=== PATIENT | female | born 1955 | race Caucasian/White ===

== ENCOUNTER 2022-02-27 16:37 | Emergency (ER) | payer BC, OTHER ==
--- NOTE | 2022-02-27 18:00 | RAD REPORT ---
EXAM DESCRIPTION: RAD - Foot Right 3 View - 02/27/2022 5:49 pm CLINICAL HISTORY: Right foot pain status post injury FINDINGS: Nondisplaced fracture distal metaphysis fifth proximal phalanx. Additional oblique lucency within proximal diaphysis fifth proximal phalanx likely nondisplaced fract ure No dislocation
--- NOTE | 2022-02-27 19:01 | EDPHYS ---
Physician Documentation [facility] Name: Leonie Villalta Age: 66 yrs Sex: Female : 1955 Arrival Date: 02/27/2022 Time: 16:40 Bed 12 Private MD: ED Physician Fazal Villareal Historical: - Allergies: 02/27 17:06 No Known Allergies; vg1 - Home Meds: 17:06 amlodipine oral [Active]; atorvastatin Oral [Active]; trulicity [Active]; toujeo vg1 [Active]; Jaurdiance [Active]; - PMHx: 17:06 Diabetes - NIDDM; High Cholesterol; IBS; vg1 - PSHx: 17:06 Cholecystectomy; Appendectomy; Bowel Resection; vg1 - Immunization history:: Client reports receiving the 2nd dose of the Covid vaccine. - Social history:: Smoking status: Patient denies any tobacco usage or history of. Vital Signs: 17:04 BP 148 / 79; Pulse 96; Resp 16; Temp 98.0; Pulse Ox 99% on R/A; Weight 70.31 kg; Height vg1 5 ft. 5 in. (165.10 cm); Pain 8/10; 17:04 Body Mass Index 25.79 (70.31 kg, 165.10 cm) vg1 MDM: 17:18 Patient medically screened. [facility] 19:00 Data reviewed: vital signs, nurses notes. Counseling: I had a detailed discussion with [facility] the patient and/or guardian regarding: the historical points, exam findings, and any diagnostic results supporting the discharge/admit diagnosis, radiology results, the need for outpatient follow up, to return to the emergency department if symptoms worsen or persist or if there are any questions or concerns that arise at home. 02/27 17:19 Order name: Foot Right 3 View XRAY; Complete Time: 18:04 [facility] 02/27 18:05 Order name: Ortho shoe; Complete Time: 19:04 [facility] 02/27 18:05 Order name: Misc. Order: néstor tape 4th and 5th toe ; Complete Time: 19:04 [facility] Administered Medications: No medications were administered Disposition: 02/28 07:39 Co-signature as Attending Physician, Fazal Villareal MD I agree with the assessment and kdr plan of care. Disposition Summary: 02/27/22 19:01 Discharge Ordered Location: Home jmm Condition: Stable jmm Diagnosis - Fracture of the Toe, unspecified jmm Followup: jm - With: Edy Brown DPM - When: 2 - 3 days - Reason: Recheck today's complaints, Continuance of care, Re-evaluation by your physician Discharge Instructions: - Discharge Summary Sheet jmm - Toe Fracture jm Forms: - Medication Reconciliation Form jm - Thank You Letter jmm - Antibiotic Education jm - Prescription Opioid Use [facility] Signatures: Dispatcher [employer] EDMS Fazal Villareal MD MD kdr Mickail, Joel, PA PA jmm Garcia, Victoria, RN RN vg1
--- NOTE | 2022-02-27 19:01 | ER ---
Nurse's Notes [facility] Name: Leonie Villalta Age: 66 yrs Sex: Female : 1955 Arrival Date: 02/27/2022 Time: 16:40 Bed 12 Private MD: Diagnosis: Fracture of the Toe, unspecified Presentation: 02/27 17:04 Chief complaint: Patient states: pt was walking and caught fourth and fifth digit of vg1 Right foot on a bench. Coronavirus screen: Vaccine status: Patient reports receiving the 2nd dose of the covid vaccine. Client denies travel out of the [place] in the last 14 days. Ebola Screen: Patient denies exposure to infectious person. Patient denies travel to an Ebola-affected area in the 21 days before illness onset. Initial Sepsis Screen: Does the patient meet any 2 criteria? No. Patient's initial sepsis screen is negative. Does the patient have a suspected source of infection? No. Patient's initial sepsis screen is negative. Risk Assessment: Do you want to hurt yourself or someone else? Patient reports no desire to harm self or others. Onset of symptoms was February 27, 2022. 17:04 Method Of Arrival: Ambulatory vg1 17:04 Acuity: ODALYS 4 vg1 Triage Assessment: 17:06 General: Appears in no apparent distress. uncomfortable, Behavior is calm, cooperative. vg1 Pain:. 17:06 Pain: Complains of pain in right fourth toe, right fifth toe, Right fourth toenail and vg1 Right fifth toenail Pain currently is 2 out of 10 on a pain scale. at worst was 8 out of 10 on a pain scale. Musculoskeletal: Capillary refill < 3 seconds. Historical: - Allergies: 17:06 No Known Allergies; vg1 - Home Meds: 17:06 amlodipine oral [Active]; atorvastatin Oral [Active]; trulicity [Active]; toujeo vg1 [Active]; Jaurdiance [Active]; - PMHx: 17:06 Diabetes - NIDDM; High Cholesterol; IBS; vg1 - PSHx: 17:06 Cholecystectomy; Appendectomy; Bowel Resection; vg1 - Immunization history:: Client reports receiving the 2nd dose of the Covid vaccine. - Social history:: Smoking status: Patient denies any tobacco usage or history of. Screenin:30 Abuse screen: Denies threats or abuse. Denies injuries from another. Nutritional jl7 screening: No deficits noted. Tuberculosis screening: No symptoms or risk factors identified. Fall Risk None identified. Assessment: 17:30 General: Appears in no apparent distress. uncomfortable, Behavior is calm, cooperative, jl7 appropriate for age. Pain: Complains of pain in right foot Pain currently is 8 out of 10 on a pain scale. Neuro: Level of Consciousness is awake, alert, obeys commands, Oriented to person, place, time, situation. Cardiovascular: Patient's skin is warm and dry. Respiratory: Airway is patent Respiratory effort is even, unlabored, Respiratory pattern is regular, symmetrical. Derm: Skin is pink, warm \T\ dry. Vital Signs: 17:04 BP 148 / 79; Pulse 96; Resp 16; Temp 98.0; Pulse Ox 99% on R/A; Weight 70.31 kg; Height vg1 5 ft. 5 in. (165.10 cm); Pain 8/10; 17:04 Body Mass Index 25.79 (70.31 kg, 165.10 cm) vg1 ED Course: 16:40 Patient arrived in ED. rg4 17:06 Triage completed. vg1 17:06 Arm band placed on. vg1 17:07 Phoenix Christy PA is PHCP. jmm 17:08 Fazal Villareal MD is Attending Physician. [facility] 17:30 Patient has correct armband on for positive identification. jl7 17:30 No provider procedures requiring assistance completed. Patient did not have IV access jl7 during this emergency room visit. 17:51 Foot Right 3 View XRAY In Process Unspecified. EDMS 18:06 Sofía Reyes, RN is Primary Nurse. jl7 19:00 Edy Brown DPM is Referral Physician. jmm Administered Medications: No medications were administered Medication: 17:30 VIS not applicable for this client. jl7 Outcome: 19:01 Discharge ordered by . [facility] 19:13 Discharged to home ambulatory. jl7 19:13 Condition: stable 19:13 Discharge instructions given to patient, Instructed on discharge instructions, follow up and referral plans. Demonstrated understanding of instructions, follow-up care. 19:13 Patient left the ED. jl7 Signatures: Dispatcher [employer] EDMS Phoenix Christy PA PA jmm Marco, Margo rg4 Sofía Reyes RN RN jl7 Daily Lara RN RN vg1 Corrections: (The following items were deleted from the chart) 17:07 17:04 Chief complaint: Patient states: pt was walking and caught fourth and fifth digit vg1 of Left foot on a bench. vg1
[2022-02-27 19:32] VITALS: BP 148/79; TEMP 98; O2SAT 99
== END 2022-02-27 19:13 | disposition home or self-care (01) ==
LOC: ER 16:37
DX: S92.424A Nondisplaced fracture of distal phalanx of right great toe, initial encounter for closed fracture (principal)
CPT/HCPCS: 99283

== ENCOUNTER 2022-05-19 11:24 | Observation (INO) | payer OTHER ==
--- OUTSIDE RECORDS SUMMARY | 2022-05-19 11:28 | XMS REPORT | Continuity of Care Document ---
:1955 Author Organization [facility] t Address [address] [place] [address] Care Team Providers Name Role Phone Ladi Roman MD Primary Care Physician [facility] Attending Clinician Unavailable Ladi Roman MD Attending Clinician Karely Moore MD Attending Clinician [phone] Margoth Maya MA Attending Clinician Unavailable LELAND LIU Attending Clinician Unavailable Fior Schwab MA Attending Clinician Unavailable Yann Tenorio MD Attending Clinician Provider Kenia RICARDO Attending Clinician ENRIKE HAMMOND Attending Clinician Unavailable Payers Payer Name Policy Type Policy Number Effective Date Expiration Date S ource Problems Condition Condition Condition Status Onset Resolution Last Treating Co mments Source Name Details Category Date Date Treatment Clinician Date Coronary Coronary Disease Active Overview: [facility] artery artery 3-[address] disease disease 00:00: g of this Hospi ta involving involving 00 note is l [place] different coronary coronary from the artery of artery of original. [place] heart heart Alexa without without -Asymptom angina angina atic : pectoris pectoris originall y referred and evaluated in 11/2019 : ordered test never completed -Dislike ASA : thinks its responsib le for worsening ear ringing-E CHO :-Normal LV mass. LV EF is normal. Overall wall motion is normal. -Diastoli c dysfuncti on Grade I (Mild): Impaired relaxatio n with normal LV filling pressures . -RV size is normal. RV systolic function is normal.-C alcium score was abnormal: IMPRESSIO N: Heavy coronary calcifica tion with a total coronary artery calcium score of 668, at the 90th percentil e compared to patients with the same demograph ics.-Nucl ear stress test : nuclear stress test results are normal. Continue your current medicatio ns. Hyperglyce Hyperglyce Disease Active Overview : Methodi johana due to johana due to 11-15 [facility] diabetes diabetes 00:00: g of this Hos naresh mellitus mellitus 00 note l might be different from the original. Worsening diabetes control with complicat ed CAD -Start Jardiance 25 mg ; hydrate well : check CMP next : Aware of risk of dehydrati on and yeast infection -Emphasiz e need to hydrate Screening Screening Disease Active 2020-08 Overview: Methodi for breast for breast 09-07 [facility] cancer cancer 00:00: g of this Hospita 00 note l might be different from the original. [facility] 09/19 Normal as per letter to pt ( she will mail for us the copy since we requested and never receive it ) Fatty Fatty Disease Active Overview: Method i liver liver 03-25 [facility] 00:00: g of this Hospita 00 note l might be different from the original. Evaluated by GI US 2020:Hepa tomegaly and diffuse hepatic steatosis Mild elevated of LFTS 2 to statin : Cardiolog y recommend to continue Crestor Fatty liver no biopsy is needed H pylori H pylori Disease Active Overview: Me thodi ulcer ulcer 12-03 [facility] 00:00: g of this Hospita 00 note l might be different from the original. Dr Twyla Greenfield EGD with H pylori : treated -2021 Recurrent Positive H pylori treated ,now on nexium 2 tab /d : will repeat H pylori in few weeks Irritable Irritable Disease Active Overview: Methodi bowel bowel 12-03 [facility] syndrome syndrome 00:00: g of this Hos naresh with both with both 00 note l constipati constipati might be on and on and different diarrhea diarrhea from the original. Followed by dr Dr Jean Pierre [facility] GI -Known to have partial colectomy 2 to diverticu litis in the past -Diarrhea alternati ng with constipat ion -blaiming vitamin D for constipat ion : off vitamin D Screening Screening Disease Active Overview: Methodi for colon for colon 09-06 [facility] cancer cancer 00:00: g of this Hospita 00 note l might be different from the original. Dr Greenfield in [place]-S /p partial colectomy 2 to diverticu litis -2015 H/O colonosco py with polypecto my RTC in 5 years -2020 colonosco py RTC in 3 years Hip pain Hip pain Disease Recurre Overview: M hernandezodi nce [address] 00:00: g of this Hospita 00 note l might be different from the original. 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 3.Acetabu lar over coverage of the left femoral head, which can be seen with pincer morpholog y femoral acetabula r impingeme nt, and should be correlate d clinicall y with patient's symptoms. 4.Vascula r calcifica tions incidenta lly noted. A 3 mm enthesoph yte is noted at the inferior aspect of the left greater trochante r Soft tissues are otherwise unremarka ble. Last Assessmen t & Plan: Formattin g of this note might be different from the original. 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 -Multifac torial including back pain + diabetic neuropath y :better control since daily intake of gabapenti n 04/2022 ; using her gabapenti n as needed : neuropath y not acting up Diverticul Diverticul Disease Recurre Methodi osis of osis of cte 03-28 st large large 00:00: Hospita intestine intestine 00 l Status Status Disease Active Overview: [facility] Hospi ta colectomy; colectomy; 00 note l 2004 for 2005 for might be diverticul diverticul different tis tis from the original. H/o alternati ng diarrhea and constipat ion Screening Screening Disease Active Overview: Methodi for for 03-[address] osteoporos osteoporos 00:00: g of this Hospita is is 00 note is l different from the original. 2018 : IMPRESSIO N: 1. Normal bone mineral density of the lumbar spine.2. Osteopeni a of the bilateral proximal femurs. Dual femur FRAX:Risk factors: History of fracture as an adult 10 year probabili ty of fracture: 1. Major osteoporo tic: 14.7%2. Hip: 1.5%3. 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 -Good control continue amlodipin e / benazepri l due for labs Last Assessmen t & Plan: Formattin g of this note might be different from the original. 08/2020 continue same med controlle d Diabetes Diabetes Disease Active Overview: Me thodi mellitus mellitus 04-[address] type 2 type 2 00:00: g of this Hospita with with 00 note l complicati complicati might be ons ons different from the original. -With multiple complicat ions including : CAD / hyperlipi demia / HTN Better control since adding Jardiance 25 to trulicity 3+ Toujeo 84 units Allergy Allergy Disease Active Methodi 04-05 st 00:00: Hospita 00 l Mixed Mixed Disease Active Overview: Method i hyperlipid hyperlipid 04-[address] emia emia 00:00: g of this Hospita 00 note l might be different from the original. _tolerati ng crestor 20 mg due for lipid profile Back pain Back pain Disease Active Overview: Methodi with with 04-[address] history of history of 00:00: g of this [facility] spinal spinal 00 note l surgery surgery might be different from the original. Evaluated by Orthopedi c ; Dr Hammond referred for PT ( not completed )-H/o surgery with Lumbar post-lami nectomy syndrome2 014 MRI :MRI of Lumbar spine 2013 which demonstra te; Present laminecto my change at L4-L5 and L5-S1 without recurrent protrusio n.Post discectom y bulge with posterior central annular ossificat ion at L4-L5. Granulati on tissue adjacent to the proximal right L5 root sleeve without recurrent protrusio n. Borderlin e central canal dimension s with mild right foraminal narrowing . Mild facet degenerat ion. Post discectom y bulge with spondylos is at L5-S1 more prominent right posterior laterally without recurrent protrusio n and moderate bilateral facet degenerat ion right greater than left. Mild right foraminal narrowing without central stenosis. -Xray 2020 : a mild scoliosis open to the right centered at about L3-4 which is measured at about 10 or 11 degrees. Moderate to advanced degenerat raquel changes are noted in the upper lumbar region. Flexion and extension laterals do not demonstra te any evidence of mechanica l instabili ty. On the AP view, there appears to be transitio nal segmentat ion at the lower end, with lateral element correlati on of L5 to the sacrum. There does appear to be at least a disc space at this level on the lateral x-ray.-Di agnosed 2004 after trauma at work s/p herniated disc surgery :s/p flareup for 3 M - long discussio n about her symptoms , prognosis , expectati on,outcom e , managemen t.,safety profile and expected side effects.- Better with gabapenti n twice daily to control neuropath y / sciatica -Discuss pain managemen t if not well controlle d Vitamin D Vitamin D Disease Recurre Overview: Methodi deficiency deficiency nce 04-[address] 00:00: g of this Hospita 00 note l might be different from the original. uncontrol led low vitamin D , discuss benefit for bone health : plan Start vitamin D 50.000 weekly for 12 weeks (09/19 ) than switch to OTC vitamin D 4000 U /d Allergies, Adverse Reactions, Alerts This patient has no known allergies or adverse reactions. Family History Family Member Diagnosis Comments Start Date Stop Date Source Natural brother Diabetes [facility] Natural father Abnormal EKG [facility] Natural father Stroke [facility] Maternal grandfather [facility] Maternal grandmother [facility] Natural mother Heart attack [facility] Paternal grandfather [facility] Paternal grandmother [facility] Natural sister Diabetes [facility] Natural sister Emphysema [facility] Social History Social Habit Start Date Stop Date Quantity Comments Source Cigarettes smoked 2022-05-06 2022-05-06 [facility] current (pack per 00:00:00 00:00:00 Hospita l day) - Reported Cigarette 2022-05-06 2022-05-06 [facility] pack-years 00:00:00 00:00:00 Hospital Tobacco use and 2022-05-06 2022-05-06 Smokeless tobacco [facility] exposure 00:00:00 00:00:00 non-user Hospital Alcohol intake 2022-05-06 2022-05-06 Current [facility] 00:00:00 00:00:00 non-drinker of Hospital alcohol (finding) History of tobacco 1999-08-30 2004-08-30 Current smoker [facility] use 00:00:00 00:00:00 Hospital Sex [birth year] At [birth year] [facility] 00:00:00 00:00:00 Hospital Smoking Status Start Date Stop Date Source Ex-smoker 2022-05-06 00:00:00 2022-05-06 00:00:00 [facility] Medications Ordered Filled Start Stop Current Ordering Indication Dosage Frequency Signature Comments Components Source Medication Medication Date Date Medication? Clinician (SIG) Name Name rosuvastati Yes 20mg QD Take 1 Meth janessa n (CRESTOR) 14 tablet (20 st 20 mg 00:00: mg total) Hospita tablet 00 by mouth l daily. colestipoL Yes 1g Q.5D Take 1 g Met hodi (COLESTID) 05-[address] 1 gram 13:36: in the Hospita tablet 10 morning l and 1 g before bedtime. gabapentin Yes 1 tab Method i (NEURONTIN) 05-06 twice /d st 300 mg 00:00: as needed Hospit a capsule 00 l empaglifloz Yes TAKE 1 Meth janessa in 8- TABLET BY st (Jardiance) 00:00: MOUTH Hospi ta 25 mg 00 EVERY l tablet MORNING WITH BREAKFAST Toujeo Max Yes INJECT Metho di U-300 7-[address] SoloStar 00:00: (87 UNITS Hosp araceli 300 unit/mL 00 TOTAL) l (3 mL) INTO THE insulin pen SHOULDER, subcutaneou THIGH, OR s pen BUTTOCKS DAILY FOR 90 DAYS. rosuvastati 2021- No 20mg QD Take 1 Met hodi n (CRESTOR) 02-26 09-14 tablet (20 s t 20 mg 00:00: 00:00 mg total) Hospit a tablet 00 :00 by mouth l daily. amLODIPine- Yes [id number] TAKE 1 Methodi benazepriL 5-[address] (LOTREL) 00:00: MOUTH Hospita 10-40 mg 00 EVERY DAY l per capsule Trulicity 3 Yes [id number] 3mg Q1W INJECT 0.5 Methodi mg/0.5 mL 4-25 ML ([address] subcutaneou 00:00: TOTAL) Hosp araceli s pen 00 UNDER THE l SKIN EVERY 7 DAYS. empaglifloz 2021- No 1 tab Meth janessa in 25 mg 11-05- daily with st tablet 00:00: 00:00 breakfast Hospi ta 00 :00 l fluconazole 2021- No 1 tab Meth janessa (DIFLUCAN) 11-05 03-[address] 150 MG 00:00: 05:59 2 days Hospita tablet 00 :00 l Toujeo Max 2020-08- No INJECT 88 M ethodi U-300 2-29 07-[address] SoloStar 00:00: 00:00 SUBCUTANEO Ho spita 300 unit/mL 00 :00 USLY ONCE l (3 mL) DAILY insulin pen subcutaneou s pen pen needle, 2020-08 Yes USE Meth janessa diabetic 1-[address] (BD 00:00: WITH Hospita Ultra-Fine 00 INSULIN l Mini Pen ONCE A DAY Needle) 31 gauge x 3/16" needle amLODIPine- 2020-08- No [id number] TAKE 1 Methodi benazepriL 1- 05-[address] (LOTREL) 00:00: 00:00 MOUTH Hospita 10-40 mg 00 :00 EVERY DAY l per capsule Trulicity 3 2020-08- No [id number] 3mg Q1W INJECT 0.5 Methodi mg/0.5 mL 1-10 04-25 ML ([address] subcutaneou 00:00: 00:00 TOTAL) Hos naresh s pen 00 :00 UNDER THE l SKIN EVERY 7 DAYS. insulin 2020-08- No 87U QD Inject Methodi GLARGINE 1 12-[address] (Toujeo Max 00:00: 00:00 (87 Units Hospita U-300 00 :00 total) l SoloStar) into the 300 unit/mL shoulder, (3 mL) thigh, or insulin pen buttocks subcutaneou daily for s pen 90 days. Prevalite 4 2020-08- No Metho di gram powder 0-26 03-09 st in packet 00:00: 00:00 Hospita 00 :00 l rosuvastati 2021- No TAKE 1 Met hodi n (CRESTOR) 6-25 06-[address] 20 mg 00:00: 00:00 MOUTH Hospita tablet 00 :00 DAILY l Toujeo Max 2020- No INJECT 88 M ethodi U-300 6-25 11-[address] SoloStar 00:00: 00:00 SUBCUTANEO Ho spita 300 unit/mL 00 :00 USLY ONCE l (3 mL) DAILY insulin pen subcutaneou s pen dulaglutide 2020- No [id number] 3mg Q1W Inject 0.5 Methodi (Trulicity) 5-25 11-10 mL ([address] 3 mg/0.5 mL 00:00: 00:00 total) Hos naresh subcutaneou 00 :00 under the l s pen skin every 7 days. amLODIPine- 2020- No [id number] 1{capsu QD Take 1 Methodi benazepriL 4- 11-10 le} capsule by st (LOTREL) 00:00: 00:00 mouth Hospita 10-40 mg 00 :00 daily. l per capsule gabapentin 2021- No 1 tab Metho di (NEURONTIN) 09-04 twice /d st 300 mg 00:00: 00:00 Hospita capsule 00 :00 l BD INSULIN 2016-08- USE Meth janessa PEN NEEDLE 0-15 11-[address] UF MINI 31 00:00: 00:00 WITH Hospit a gauge x 00 :00 INSULIN l 16" ONCE A DAY needle Immunizations Ordered Immunization Filled Immunization Date Status Commen ts Source Name Name FLUZONE HIGH-DOSE PF 2021-07-08 Completed Meth odist 00:00:00 [facility] KALEB COVID-19 AD26 2020-11-12 Completed Met hodist VACCINATION 00:00:00 [facility] FLUCELVAX QUAD PF 2020-05-[address] 00:00:00 [facility] Pneumococcal 2018-02-22 Completed [facility] Polysaccharide 00:00:00 [facility] Tdap 2018-02-22 Completed [facility] 00:00:00 Hospital Vital Signs Vital Name Observation Time Observation Value Comments Source Systolic blood 2022-05-06 18:33:00 126 mm[Hg] Method ist Hospital pressure Diastolic blood 2022-05-06 18:33:00 71 mm[Hg] [facility] dist Hospital pressure Heart rate 2022-05-06 18:33:00 85 /min [facility] Body height 2022-05-06 18:33:00 165.1 cm [facility] Body weight 2022-05-06 18:33:00 68.947 kg [facility] BMI 2022-05-06 18:33:00 25.29 kg/m2 [facility] Oxygen saturation in 2022-05-06 18:33:00 98 /min [facility] Arterial blood by Pulse oximetry Body temperature 2021-11-05 15:35:00 36.72 Deanna [facility] Respiratory rate 2021-11-05 15:35:00 16 /min [facility] Procedures Procedure Date / Time Performing Clinician Source Performed POC GLYCOSYLATED 2022-05-06 18:44:48 Abel Ladi [facility] HEMOGLOBIN (HGB A1C) CV STRESS TEST NUCLEAR 2021-12-02 18:56:23 Leland Liu [facility] CARDIO NM MYOCARDIAL PERFUSION 2021-12-02 18:56:23 [facility] REST STRESS 1 DAY POC GLYCOSYLATED 2021-11-05 15:47:00 [facility] HEMOGLOBIN (HGB A1C) MAMMO EXTERNAL STUDY 2021-10-23 00:00:[address] [facility] [address] CARDIAC CALCIUM SCORE 2021-10-15 14:58:47 [facility] TTE COMPLETE, W CONTRAST, 2021-08-08 19:56:34 [facility] W DOPPLER ([id number]) ECG 12-LEAD 2021-07-30 16:48:07 [facility] US HEPATIC 2021-07-21 15:16:10 [facility] ospital HEMOGLOBIN A1C 2021-07-08 16:32:00 [facility] COMPREHENSIVE METABOLIC 2021-07-08 16:32:00 [facility] PANEL CBC WITH PLATELET AND 2021-07-08 16:32:00 [facility] DIFFERENTIAL HEPATITIS C ANTIBODY 2021-07-08 16:32:00 [facility] LIPID PANEL 2021-07-08 16:32:00 [facility] MICROALBUMIN / CREATININE 2021-07-08 16:32:00 [facility] URINE RATIO VITAMIN D 25 HYDROXY 2021-07-08 16:32:00 [facility] LEVEL THYROID STIMULATING 2021-07-08 16:32:00 [facility] HORMONE IP CONSULT TO 2021-06-30 00:00:00 Provider, Historical [facility] OPHTHALMOLOGY Plan of Care Planned Activity Planned Date Details Comments Source Future Scheduled 2022-05-19 HEPATITIS B VACCINES Met hodist Test 11:27:31 (1 of 3 - Risk Hospital 3-dose series) [code = HEPATITIS B VACCINES (1 of 3 - Risk 3-dose series)] Future Scheduled 2022-05-19 65+ PNEUMOCOCCAL [facility] Test 11:27:31 VACCINE (2 - PCV) Hospital [code = 65+ PNEUMOCOCCAL VACCINE (2 - PCV)] Future Scheduled 2022-05-19 DXA SCAN [code = DXA Met hodist Test 11:27:31 SCAN] Hospital Future Scheduled 2022-05-19 COVID-19 VACCINE (2 Meth odist Test 11:27:31 - Booster for Hospital Kaleb series) [code = COVID-19 VACCINE (2 - Booster for Kaleb series)] Future Scheduled 2022-05-19 INFLUENZA VACCINE Method ist Test 11:27:31 [code = INFLUENZA Hospital VACCINE] Future Scheduled 2022-05-19 SHINGLES VACCINES (1 Postponed from M ethodist Test 11:27:31 of 2) [code = 2006 Hospital SHINGLES VACCINES (1 (Insurance / of 2)] Financial) Future Scheduled 2022-05-19 BREAST CANCER [facility] Test 11:27:31 SCREENING [code = Hospital BREAST CANCER SCREENING] Future Scheduled 2022-05-19 DIABETIC FOOT EXAM Metho dist Test 11:27:31 [code = DIABETIC Hospital FOOT EXAM] Future Scheduled 2022-05-19 DIABETES: RETINAL Method ist Test 11:27:31 EYE EXAM [code = Hospital DIABETES: RETINAL EYE EXAM] Future Scheduled 2022-05-19 COLONOSCOPY [facility] Test 11:27:31 SCREENING [code = Hospital COLONOSCOPY SCREENING] Encounters Start End Encounter Admission Attending Care Care Encounter Source Date/Time Date/Time Type Type Clinicians Facility Department ID 2022-05-08 2022-05-08 Patient Linda, 1.2.840.1 [id number] Methodi 00:00:00 00:00:00 Outreach [place] [address] 3.430.2.7 Hospit a .3.105564 l .8 2022-05-06 2022-05-06 Office Abel, 1.2.840.1 [id number] Methodi 13:30:00 15:36:06 Visit Ladi 69243.1.[address] 3.430.2.7 Hospit a .3.730161 l .8 2022-05-06 2022-05-06 Travel 1.2.840.1 1.2.083.846 [id number] Methodi 00:00:00 00:00:[address] 3.430.2.7 [facility] .[facility] 2022-05-06 2022-05-06 Outpatient ABEL, [facility] [id number] [place] 00:00:00 00:00:[address]ADI [address] 2022-03-29 2022-03-29 [facility] 1.2.840.1 [id number] Methodi 00:00:00 00:00:[address] 3.430.2.7 Hospit a .3.799161 l .8 2022-03-18 2022-03-18 Refill [facility], 1.2.840.1 [id number] Methodi 00:00:00 00:00:[address] 3.430.2.7 Hospit a .3.205822 l .8 2022-02-25 2022-02-25 Refill [facility] 1.2.840.1 [id number] Methodi 00:00:00 00:00:00 Karely [address] 3.430.2.7 Hospit a .3.305519 l .8 2022-01-23 2022-01-23 Telephone [facility], 1.2.840.1 [id number] Methodi 00:00:00 00:00:[address] 3.430.2.7 Hospit a .3.591549 l .8 2022-01-22 2022-01-22 [facility], 1.2.840.1 [id number] Methodi 00:00:00 00:00:[address] 3.430.2.7 Hospit a .3.477699 l .8 2022-01-16 2022-01-16 Telephone Earl, 1.2.840.1 [id number] Methodi 00:00:00 00:00:[address] 3.430.2.7 Hospit a .3.882649 l .8 2022-01-12 2022-01-12 Telephone Zulma, 1.2.840.1 [id number] Methodi 00:00:00 00:00:[address] 3.430.2.7 Hospit a .3.764189 l .8 2022-01-07 2022-01-07 Refill [facility], 1.2.840.1 [id number] Methodi 00:00:00 00:00:[address] 3.430.2.7 Hospit a .3.181495 l .8 2021-12-20 2021-12-20 Refill [facility], 1.2.840.1 [id number] Methodi 00:00:00 00:00:[address] 3.430.2.7 Hospit a .3.655610 l .8 2021-12-16 2021-12-16 Telephone [facility], 1.2.840.1 [id number] Methodi 00:00:00 00:00:[address] 3.430.2.7 Hospit a .3.864845 l .8 2021-12-11 2021-12-11 Telephone [facility], 1.2.840.1 [id number] 095 [id number] Methodi 00:00:00 00:00:[address] 3.430.2.7 Hospit a .3.547074 l .8 2021-11-18 2021-11-18 Outpatient LIU, [facility] [id number] [place] 00:00:00 00:00:00 [address] [facility] 2021-11-05 2021-11-05 Office [facility], 1.2.840.1 [id number] Methodi 09:30:00 10:48:19 Visit Ladi 12263.1.[address] 3.430.2.7 Hospit a .3.738036 l .8 2021-11-05 2021-11-05 Travel 1.2.840.1 1.2.572.074 [id number] Methodi 00:00:00 00:00:[address] 3.430.2.7 0.2.7.3.698 Ho spita .3.954475 084.8 l .8 2021-11-05 2021-11-05 Outpatient [facility] [id number] [place] 00:00:00 00:00:00 LADI [address] 2021-10-23 2021-10-23 Orders [facility], 1.2.840.1 [id number] Methodi 00:00:00 00:00:00 Only Ladi 29748.1.[address] 3.430.2.7 Hospit a .3.061128 l .8 2021-10-15 2021-10-15 Orders [facility], 1.2.840.1 [id number] Methodi 00:00:00 00:00:00 Only Ladi 69383.1.[address] 3.430.2.7 Hospit a .3.072399 l .8 2021-10-15 2021-10-15 Outpatient [facility] [id number] [place] 00:00:00 00:00:00 LELAND [address] 2021-08-26 2021-08-26 Refill [facility], 1.2.840.1 [id number] Methodi 00:00:00 00:00:[address] 3.430.2.7 Hospit a .3.117400 l .8 2021-08-08 2021-08-08 Travel 1.2.840.1 1.2.012.471 [id number] Methodi 00:00:00 00:00:[address] 3.430.2.7 0.2.7.3.698 Ho spita .3.629005 084.8 l .8 2021-08-08 2021-08-08 Outpatient LIU, [facility] [id number] [place] 00:00:00 00:00:00 LELAND [address] 2021-08-01 2021-08-01 Telephone Liu, 1.2.840.1 [id number] Methodi 00:00:00 00:00:00 Leland Joyce [address]41.1.[address] 3.430.2.7 Hospit a .3.448550 l .8 2021-07-30 2021-07-30 Office Liu, 1.2.840.1 [id number] Methodi 11:00:00 11:32:57 Visit Leland Joyce 27668.1.[address] 3.430.2.7 Hospit a .3.996462 l .8 2021-07-30 2021-07-30 Travel 1.2.840.1 1.2.320.705 [id number] Methodi 00:00:00 00:00:[address] 3.430.2.7 0.2.7.3.698 Ho spita .3.548687 084.8 l .8 2021-07-30 2021-07-30 Outpatient LIU, [facility] [id number] [place] 00:00:00 00:00:00 LELAND [address] 2021-07-28 2021-07-28 Travel 1.2.840.1 1.2.420.374 [id number] Methodi 00:00:00 00:00:[address] 3.430.2.7 0.2.7.3.698 Ho spita .3.797522 084.8 l .8 2021-07-21 2021-07-21 Travel 1.2.840.1 1.2.448.401 [id number] Methodi 00:00:00 00:00:[address] 3.430.2.7 0.2.7.3.698 Ho spita .3.796104 084.8 l .8 2021-07-21 2021-07-21 Outpatient [facility] [id number] [place] 00:00:00 00:00:00 LADI [address] 2021-07-14 2021-07-14 [facility] 1.2.840.1 [id number] Methodi 00:00:00 00:00:00 Only Ladi 73673.1.[address] 3.430.2.7 Hospit a .3.722140 l .8 2021-07-09 2021-07-09 Orders Zaheer, 1.2.840.1 [id number] 2238 Methodi 00:00:00 00:00:00 Only Fior [address]89.1.[address] 3.430.2.7 Hospit a .3.443083 l .8 2021-07-08 2021-07-08 Office [facility], 1.2.840.1 [id number] Methodi 10:45:00 10:45:00 Visit Ladi 74803.1.[address] 3.430.2.7 Hospit a .3.460009 l .8 2021-07-08 2021-07-08 [facility] 1.2.840.1 [id number] Methodi 10:35:00 10:40:[address] 3.430.2.7 Hospit a .3.874518 l .8 2021-07-08 2021-07-08 Outpatient [facility] [id number] [place] 00:00:00 00:00:00 LADI [address] 2021-07-08 2021-07-08 [facility] 1.2.840.1 [id number] Methodi 00:00:00 00:00:[address] 3.430.2.7 Hospit a .3.521694 l .8 2021-07-08 2021-07-08 Refill Tenorio, 1.2.840.1 [id number] 0957 Methodi 00:00:00 00:00:00 Yann Bowen [address]242.1.[address] 3.430.2.7 Hospit a .3.345851 l .8 2021-07-08 2021-07-08 Refill Abel, 1.2.840.1 [id number] 90882 Methodi 00:00:00 00:00:[address] 3.430.2.7 Hospit a .3.002446 l .8 2021-07-08 2021-07-08 Travel 1.2.840.1 1.2.019.091 5017 [id number] Methodi 00:00:00 00:00:[address] 3.430.2.7 0.2.7.3.698 Ho spita .3.314755 084.8 l .8 2021-07-08 2021-07-08 Outpatient [facility] [id number] [place] 00:00:00 00:00:00 LADI [address] 2021-06-30 2021-06-30 Orders Provider, 1.2.840.1 [id number] Methodi 00:00:00 00:00:00 Only Historical 37232.1.1 [address]59 [address] 3.430.2.7 Hospit a .3.120411 l .8 2021-03-25 2021-03-25 Outpatient [facility] [id number] [place] 00:00:00 00:00:00 LADI [address] 2020-12-03 2020-12-03 Outpatient [facility] [id number] [place] 00:00:00 00:00:00 LADI [address] 2020-09-19 2020-09-19 Outpatient [facility] [id number] [place] 00:00:00 00:00:00 ENRIKE [address] 2020-09-19 2020-09-19 Outpatient [facility] [id number] [place] 00:00:00 00:00:00 ENRIKE [address] 2020-09-19 2020-09-19 [facility] [id number] [place] 00:00:00 00:00:00 LADI [address] 2020-09-04 2020-09-04 [facility] [id number] [place] 00:00:00 00:00:00 LADI [address] 2020-09-04 2020-09-04 [facility] [id number] [place] 00:00:00 00:00:00 LADI [address] 2020-05-28 2020-05-28 [facility] [id number] [place] 00:00:00 00:00:00 LADI [address] 2020-03-12 2020-03-12 [facility] [id number] [place] 00:00:00 00:00:00 LADI [address] 2020-02-21 2020-02-21 [facility] [id number] [place] 00:00:00 00:00:00 LADI [address] 2019-11-29 2019-11-29 [facility] [id number] [place] 00:00:00 00:00:00 LADI [address] 2019-11-22 2019-11-22 [facility] [id number] [place] 00:00:00 00:00:00 LADI [address] Results Test Description Test Time Test Comments Results Result Comments Source POC glycosylated hemoglobin (Hb A1C) 2022-05-06 18:44:48 Test Item Value Reference Range Interpretation Comme nts POC Hemoglobin A1C (test code = 1777387) 6.3 % [facility] [id number] 22:13:07 Test Item Value Reference Range Interpretation Comments Ventricular rate (test code = 253) Atrial rate (test code = 255) WI interval (test code = 266) QRSD interval (test code = 260) QT interval (test code = 264) QTC interval (test code = 265) P axis 1 (test code = 267) QRS axis 1 (test code = 268) T wave axis (test code = 270) EKG impression (test Normal sinus code = 273) rhythm-Septal infarct , age undetermined-Abnormal ECG-No previous ECGs available-Electronica lly Signed By Irasema Jack MD ([id number]) on 07/30/2021 4:13:06 PM [facility] [id number] 17:37:00 Test Item Value Reference Interpretation Comments Range Glucose (test code 138 mg/dL 65-99 H Fasting reference = 2345-7) interval For so meone without known diabetes, a glucosevalue >1 25 mg/dL indicates that they may havediabetes an d this should be confirmed with afollow-up test . BUN (test code = 12 mg/dL 7-25 3094-0) Creatinine (test 0.79 mg/dL 0.5-0.99 For patient s >49 code = 2160-0) years of age, the reference limit for Creatinine is approximately 1 3% higher for peopleidentifie d as -Cinthia n. EGFR Non-Afr. See_Comment [Automated me ssage] Burundian (test code The syst em which = 6439) generated this result transmit melissa reference range : > OR = 60 mL/min/1.73m2. The reference range was not used to interpret this result as normal/abnormal . EGFR See_Comment [Automated mes terrell] Burundian (test code The syst em which = 3754) generated this result transmit melissa reference range : > OR = 60 mL/min/1.73m2. The reference range was not used to interpret this result as normal/abnormal . BUN/creatinine NOT APPLICABLE See_Comment [Automated message] ratio (test code = The syste m which 3097-3) generated this result transmit melissa reference range : 6 - 22 (calc). The reference range was not used to interpret this result as normal/abnormal . Sodium (test code = 141 mmol/L 903-802 4479-2) Potassium (test 4.9 mmol/L 3.5-5.3 code = 2823-3) Chloride (test code 105 mmol/L 98-110 = 2075-0) CO2 (test code = 28 mmol/L 20-32 2027-9) Calcium (test code 9.7 mg/dL 8.6-10.4 = 10059-3) Protein (test code 7.3 g/dL 6.1-8.1 = 2885-2) Albumin, S (test 4.6 g/dL 3.6-5.1 code = 1751-7) Globulin, total See_Comment [Automated message] (test code = The [place] h 07953-5) generated this result transmit melissa reference range : 1.9 - 3.7 g/dL (jonathan c). The reference r jennifer was not used to interpret this result as normal/abnormal . Albumin/globulin See_Comment [Automated message] ratio (test code = The syste m which 1759-0) generated this result transmit melissa reference range : 1.0 - 2.5 (calc). T he reference range was not used to interpret this result as normal/abnormal . Total bilirubin 0.4 mg/dL 0.2-1.2 (test code = 1975-2) Alkaline 80 U/L 37-153 phosphatase (test code = 6768-6) AST (test code = 43 U/L 10-35 H 192-8) ALT (test code = 47 U/L 6-29 H 174-6) RAC (test code = Performing RAC) Organization Information: Site ID: RGA Name: [facility] Address: [address] [place] [phone] Director: Chucky Allan Lab Interpretation Abnormal (test code = 23476-7) [facility] [id number] 17:37:00 Test Item Value Reference Interpretation Comments Range Cholesterol, total 129 mg/dL See_Comment [Automat ed (test code = 2092-) message ] The system which generated this result transmitted reference range : <=200. The reference range was not used to interpret this result as normal/abnormal . HDL cholesterol 35 mg/dL See_Comment L [Automated (test code = 2084-) message ] The system which generated this result transmitted reference range : > OR = 50. The reference range was not used to interpret this result as normal/abnormal . Triglycerides (test 233 mg/dL See_Comment H If a no n-fasting code = 2571-8) specimen was collected, considerrepeat triglyceride testing on a fasting specime nif clinically indicated. Fercho allen et al. J. of Cl in. Lipidol. 2015;9:129-169. [Automated mess age] The system Netlist generated this result transmit melissa reference range : <=150. The reference range was not used to interpret this result as normal/abnormal . LDL cholesterol mg/dL (calc) Reference ra nge: calculated (test <100 Desira ble code = 32798-2) range <100 m g/dL for primary prevention; <70 mg/dL for patie nts with CHD or diabetic patien ts with > or = 2 C HD risk factors. L DL-C is now calculat ed using the Terrence-Bryan calculation, wh ich is a validated novel method providing haider r accuracy than t he Friedhilarioald equa tion in the estimati on of LDL-C. Mikki n SS et al. JONH. 2013;310(19): 1970-7139 (http://educati on.Aggregate Knowledge .KeyEffx /faq/GMQ041) Cholesterol/HDL See_Comment [Automated ratio (test code = message] The system 9830-1) which generated this result transmitted reference range : <5.0 (calc). Th e reference range was not used to interpret this result as normal/abnormal . Non-HDL cholesterol See_Comment For barry ents with (test code = diabetes plus 1 33774-1) major ASCVD ris k factor, treatin g to a non-HDL-C goa l of <100 mg/dL (LDL -C of <70 mg/dL) i s considered a therapeutic opt ion. [Automated mess age] The system Netlist generated this result transmit melissa reference range : <130 mg/dL (jonathan c). The reference r jennifer was not used to interpret this result as normal/abnormal . RAC (test code = Performing RAC) Organization Information: Site ID: RGA Name: [facility] Address: [address] [place] [phone] Director: Chucky Allan Lab Interpretation Abnormal (test code = 32100-9) [facility]Hem[facility] [id number] 17:37:00 Test Item Value Reference Interpretation Comments Range Hemoglobin A1C (test See_Comment H For aurelio eone without code = 4548-4) known diabete s, a hemoglobin A1cv alue of 6.5% or grea ter indicates that they may have diabet es and this should be confirmed with a follow-up test. For someone with kn own diabetes, a meenu ue <7% indicates t hat their diabetes is well controlled and a value greater than or equal t o 7% indicates suboptimal cont rol. A1c targets tyrone uld be individualiz ed based on durati on of diabetes, ag e, comorbid conditions, and other considerations. Currently, no consensus exist s regarding use ofhemoglobin A1 c for diagnosis o f diabetes for children. [Automated mess age] The system Netlist generated this result transmit melissa reference range : <5.7 % of total Hgb. The refere nce range was not u sed to interpret th is result as normal/abnormal . RAC (test code = Performing RAC) Organization Information: Site ID: TEJAS Name: [facility] Address: [address] [place] [phone] Director: Chucky Allan Lab Interpretation Abnormal (test code = 10723-0) [facility] HospitalThyroid stimulating [id number] 17:37:00 Test Item Value Reference Range Interpretation Comments TSH (test See_Comment [Automated [facility] terrell] code = The system Netlist 3016-3) generated this result transmit melissa reference range : 0.40 - 4.50 mIU /L. The reference r jennifer was not used to interpret this result as normal/abnormal . RAC (test Performing code = RAC) Organization Information: Site ID: TEJAS Name: [facility] Address: [address] [place] [phone] Director: Chucky Allan [facility] with platelet and [id number] 17:37:00 Test Item Value Reference Range Interpretation Comments WBC (test code = See_Comment [Automated 3548-2) message] The system which generated this result transmitted reference range : 3.8 - 10.8 Thousand/uL. Th e reference range was not used to interpret this result as normal/abnormal . RBC (test code = See_Comment [Automated 399-8) message] The system which generated this result transmitted reference range : 3.80 - 5.10 Million/uL. The reference range was not used to interpret this result as normal/abnormal . HGB (test code = 13.5 g/dL 11.7-15.5 718-7) HCT (test code = 41.6 % 35-45 4544-3) MCV (test code = 93.5 fL 80-100 787-2) MCH (test code = 30.3 pg 27-33 785-6) MCHC (test code = 32.5 g/dL 32-36 786-4) RDW (test code = 12.6 % 11-15 788-0) Platelet count See_Comment [Automated (test code = message] The 777-3) system which generated this result transmitted reference range : 140 - 400 Thousand/uL. Th e reference range was not used to interpret this result as normal/abnormal . MPV (test code = 10.1 fL 7.5-12.5 776-5) Neutrophils, See_Comment [Automated absolute (test message] The code = 751-8) system which generated this result transmitted reference range : 1,500 - 7,800 cells/uL. The reference range was not used to interpret this result as normal/abnormal . Lymphocytes, See_Comment [Automated absolute (test message] The code = 731-0) system which generated this result transmitted reference range : 850 - 3,900 cells/uL. The reference range was not used to interpret this result as normal/abnormal . Monocytes, See_Comment [Automated absolute (test message] The code = 742-7) system which generated this result transmitted reference range : 200 - 950 cells/uL. The reference range was not used to interpret this result as normal/abnormal . Eosinophils, See_Comment [Automated absolute (test message] The code = 711-2) system which generated this result transmitted reference range : 15 - 500 cells/uL. The reference range was not used to interpret this result as normal/abnormal . Basophils, See_Comment [Automated absolute (test message] The code = 704-7) system which generated this result transmitted reference range : 0 - 200 cells/u L. The reference range was not used to interpr et this result as normal/abnormal . Neutrophils (test 53.2 % code = 770-8) Lymphocytes (test 35.4 % code = 736-9) Monocytes (test 9.4 % code = 5905-5) Eosinophils (test 0.7 % code = 713-8) Basophils + RC 1.3 % (test code = 706-2) RAC (test code = Performing RAC) Organization Information: Site ID: TEJAS Name: [facility] Address: [address] [place] [phone] Director: Chucky Allan [facility] HospitalVitamin D 25 hydroxy [id number] 17:37:00 Test Item Value Reference Range Interpretation Comments Vitamin D, 25-hydroxy 23 ng/mL 30-100 L Vitami n D Status (test code = 1988-10) 25-OH V itamin D: Deficiency: <20 ng/mLInsufficie n cy: 20 - 29 ng/mLOptimal: > or = 30 ng/mL For 25-OH Vitamin D testing on patients on D2-supplementat i on and patients for whom quantitation of D2 and D3 fractions is required, the QuestAssureD(TM ) 25-OH VIT D, (D2,D3), LC/MS/MS is recommended: order code 9288 8 (patients >2yrs).See Note 1 Note 1 For additional information, please refer to http://educatio n .My Team Zone/faq/FAQ19 9 (This link is being provided for informational/e d ucational purposes only.) RAC (test code = RAC) Performing Organization Information: Site ID: TEJAS Name: [facility] Address: [address] [place] [phone] Director: Chucky Allan Lab Interpretation Abnormal (test code = 68387-8) [facility] HospitalMicroalbumin / creatinine urine [id number] 17:37:00 Test Item Value Reference Range Interpretation Comments Creatinine, 68 mg/dL 20-275 urine (mg/dL) (test code = 2161-8) Microalbumin 0.3 mg/dL See Note: Reference Range : , urine Reference Range Not (test code = established 41567-0) Microalbumin See_Comment The ADA define s /creatinine abnormalities i n ratio (test albuminexcretio n as code = follows: Albkathryn mohr 9318-7) Category Result (mcg/mg creatinine) Nor mal to Mildly increase d <30Moderately i ncreased 30-299 Severely increased > OR = 300 The ADA recomme nds that at least two of threespecimens collected withi n a 3-6 month period be abnormal before consider ing a patient to bewi thin a diagnostic rajesh hicks. [Automated mess age] The system which ge nerated this result tra nsmitted reference range : <30 mcg/mg creat. T he reference range was not used to interpr et this result as normal/abnormal . RAC (test Performing code = RAC) Organization Information: Site ID: DENISA Name: [facility] Address: [address] [place] [phone] Director: [facility] [id number] 17:37:00 Test Item Value Reference Range Interpretation Comments Hepatitis C Ab NON-REACTIVE NON-REACTIVE (test code = 95059-4) Signal/cutoff See_Comment HCV antibody was (test code = non-reactive. 07032-2) There is no laboratory evidence of HCV infection. In m ost cases, no furth er action is required. However,if rece nt HCV exposure is suspected, a te st for HCV RNA(kaushal t code 71559) is suggested. For additional information ple ase refer tohttp://educat ion .Perficient. com/faq/ZVU12s0 (Th is link is cesar oliver provided for informational/e manuelito ational purpose s only.) [Automat ed message] The system which generated this result transmit melissa reference range : <=1.00. The reference range was not used to interpret this result as normal/abnormal . RAC (test code = Performing RAC) Organization Information: Site ID: RGA Name: [facility] Address: [address] [place] [phone] Director: [facility]
[2022-05-19 12:19] LABS: Absolute Lymphocytes (CBC) 2.5 K/uL (0.7-4.9); Hematocrit 41.1 % (36.0-45.0); Lymphocytes % 12.5 % (15.3-44.8); MCV 90.9 fL (80-100); MPV 7.3 fL (7.6-11.3); RBC Red Blood Cell Count 4.53 M/uL (3.86-4.86)
[2022-05-19 12:40] LABS: Potassium 4.2 mmol/L (3.5-5.1); Troponin High Sensitivity 7.3 pg/mL (<58.9)
--- NOTE | 2022-05-19 13:08 | RAD REPORT ---
EXAM DESCRIPTION: - CP - 05/19/2022 12:37 pm CLINICAL HISTORY: chest pain COMPARISON: No comparisons TECHNIQUE: Real-time sonographic evaluation of bilateral carotid and vertebral systems was performed . Dotson scale and Doppler interrogation were performed with waveform tracing bilaterally. FINDINGS: Normal high resistance waveforms are noted in both external carotid arteries. The common c arotid arteries and internal carotid arteries show normal low resistance waveforms. Calcified and noncalcified plaquing changes are present in each carotid bulb. Visually this does not significantly narrow the lumen. Peak systolic and end diastolic velocity values and the ICA/CCA ratio s are in the non-hemodynamically significant range. Antegrade flow seen in both vertebral arteries. Velocity values and ratios were recorded and are retained in the patient's imaging records. IMPRESSION: Bilateral carotid bulb calcified and noncalcified plaquing changes. Currently the atherosclerotic changes visualized do not result in hemodynamically significant degrees of stenosis. No evidence of a hemodynamically significant stenosis.
--- NOTE | 2022-05-19 13:34 | RAD REPORT ---
EXAM DESCRIPTION: CT - Chest For Pe Angio - 05/19/2022 1:18 pm CLINICAL HISTORY: Chest pain COMPARISON: None. TECHNIQUE: Dynamically enhanced axial 3 mm thick images of the chest were obtained during administra tion of <100> mL Isovue 370 IV contrast. Coronal and oblique reconstruction images were generated and reviewed. Exam utilizes a protocol for optimal evaluation of pulmonary arterial tree. Maximum intensity projections 3D imaging was utilized All CT scans are performed using dose optimization technique as appropriate and may include automated exposure control or mA/KV adjustment according to patient size. FINDINGS: A pulmonary embolus is not seen. A thoracic aortic aneurysm is not noted. A pleural effusion is not seen. A pericardial effusion is not seen. 7 millimeter lingular nodule. 2.7 centimeter lingular opacity. IMPRESSION: Negative for a pulmonary embolism. 2.7 centimeter lingular opacity probably inflammation or atelectasis. Several millimeter lingular nodule nonspecific It is recommended that patient have a followup unenhanced CT chest in 3 months for re-evaluation of t he lingular opacities
--- NOTE | 2022-05-19 13:43 | RAD REPORT ---
EXAM DESCRIPTION: RAD - Chest Single View - 05/19/2022 1:09 pm CLINICAL HISTORY: COUGH COMPARISON: Two view chest 11/30/2011 TECHNIQUE: AP portable chest image was obtained 05/19/2022 1:09 pm . FINDINGS: Lung volumes are low accentuating the lung parenchymal pattern. Lung markings the left bas e are slightly increased relative to the right. An early pneumonia is not excluded. No significant fa ilure or volume overload. Heart and vasculature are normal. No measurable pleural effusion and no pne umothorax. No acute bony abnormality seen. No acute aortic findings suspected. IMPRESSION: Suspected small or early pneumonia left lung base.
[2022-05-19] MEDS ORDERED: ALBUTEROL 2.5 MG/3 ML NEB SOL NEB PRN (14:47)
[2022-05-19] MEDS ORDERED: ACETAMINOPHEN 500 MG TAB PO PRN (14:47)
[2022-05-19] MEDS ORDERED: ONDANSETRON 4 MG/2 ML VIAL IV PRN (14:47)
[2022-05-19] MEDS ORDERED: IPRATROPIUM BROM 0.5MG/2.5ML NEB PRN (14:47)
[2022-05-19] MEDS ORDERED: NA CHLORIDE 0.9% 100 ML ONE (14:54)
--- NOTE | 2022-05-19 15:15 | EDPHYS ---
Physician Documentation [facility] Name: Leonie Villalta Age: 66 yrs Sex: Female : 1955 Arrival Date: 05/19/2022 Time: 11:27 Bed 26 Private MD: ED Physician Orin Newton HPI: 05/19 12:05 This 66 yrs old Female presents to ER via Ambulatory with complaints of Breathing snw Difficulty, Fever. 12:05 The patient has shortness of breath at rest. Onset: The symptoms/episode began/occurred snw suddenly, at 03:00, and became persistent. Duration: The symptoms are continuous, and are unchanged since they started. The patient's shortness of breath is aggravated by deep breath. Associated signs and symptoms: Pertinent positives: chest pain, radiating up into neck. Severity of symptoms: At their worst the symptoms were moderate. The patient has not experienced similar symptoms in the past. The patient has not recently seen a physician. Historical: - PMHx: 11:46 Diabetes - NIDDM; High Cholesterol; ibs; jh5 - PSHx: 11:46 Appendectomy; bowel resection; Cholecystectomy; 5 - Immunization history:: Adult Immunizations up to date. - Social history:: Smoking status: Patient denies any tobacco usage or history of. ROS: 12:04 Constitutional: Negative for fever, chills, and weight loss, Eyes: Negative for injury, snw pain, redness, and discharge, ENT: Negative for injury, pain, and discharge. 12:04 Respiratory: Negative for shortness of breath, cough, wheezing, and pleuritic chest pain, Abdomen/GI: Negative for abdominal pain, nausea, vomiting, diarrhea, and constipation, Back: Negative for injury and pain, : Negative for injury, bleeding, discharge, and swelling, MS/Extremity: Negative for injury and deformity, Skin: Negative for injury, rash, and discoloration, Neuro: Negative for headache, weakness, numbness, tingling, and seizure, Psych: Negative for depression, anxiety, suicide ideation, homicidal ideation, and hallucinations. 12:04 Neck: Positive for pain at rest. 12:04 Cardiovascular: Positive for chest pain, of the left supraclavicular area, left clavicle, anterior aspect of left upper chest and left breast, palpitations. Exam: 12:01 Head/Face: Normocephalic, atraumatic. Eyes: Pupils equal round and reactive to light, snw extra-ocular motions intact. Lids and lashes normal. Conjunctiva and sclera are non-icteric and not injected. Cornea within normal limits. Periorbital areas with no swelling, redness, or edema. ENT: Nares patent. No nasal discharge, no septal abnormalities noted. Tympanic membranes are normal and external auditory canals are clear. Oropharynx with no redness, swelling, or masses, exudates, or evidence of obstruction, uvula midline. Mucous membranes moist. 12:01 Chest/axilla: Normal chest wall appearance and motion. Nontender with no deformity. No lesions are appreciated. 12:01 Respiratory: Lungs have equal breath sounds bilaterally, clear to auscultation and percussion. No rales, rhonchi or wheezes noted. No increased work of breathing, no retractions or nasal flaring. Abdomen/GI: Soft, non-tender, with normal bowel sounds. No distension or tympany. No guarding or rebound. No evidence of tenderness throughout. Back: No spinal tenderness. No costovertebral tenderness. Full range of motion. Skin: Warm, dry with normal turgor. Normal color with no rashes, no lesions, and no evidence of cellulitis. MS/ Extremity: Pulses equal, no cyanosis. Neurovascular intact. Full, normal range of motion. Neuro: Awake and alert, GCS 15, oriented to person, place, time, and situation. Cranial nerves II-XII grossly intact. Motor strength 5/5 in all extremities. Sensory grossly intact. Cerebellar exam normal. Normal gait. Psych: Awake, alert, with orientation to person, place and time. Behavior, mood, and affect are within normal limits. 12:01 Constitutional: The patient appears alert, awake, anxious. 12:01 Neck: External neck: is normal, ROM/movement: is normal. 12:01 Cardiovascular: Rate: tachycardic, Rhythm: regular, Pulses: no pulse deficits are appreciated, Heart sounds: gallop, Edema: is not appreciated, JVD: is not appreciated, no noted bruit. Vital Signs: 11:36 BP 129 / 66; Pulse 127; Resp 18; Temp 97.9; Pulse Ox 96% ; Weight 68.04 kg; Height 5 jh5 ft. 5 in. (165.10 cm); Pain 6/10; 12:20 BP 117 / 71; Pulse 109; Resp 20; Temp 99.8; Pulse Ox 100% ; Pain 6/10; kb3 14:36 BP 124 / 68; Pulse 106; Resp 20; Pulse Ox 95% ; kb3 15:00 BP 127 / 66; Pulse 101; Resp 20; Pulse Ox 95% ; kb3 11:36 Body Mass Index 24.96 (68.04 kg, 165.10 cm) [facility] MDM: 12:00 Patient medically screened. snw 15:11 Data reviewed: vital signs, nurses notes, lab test result(s), radiologic studies. snw Counseling: I had a detailed discussion with the patient and/or guardian regarding: lab results, radiology results, the need for further work-up and treatment in the hospital. 15:14 Data interpreted: Pulse oximetry: on room air is 96 %. Interpretation: acceptable. snw Counseling: I had a detailed discussion with the patient and/or guardian regarding:. Physician consultation: Joana Saez MD was called at 14:42, was contacted at 14:20, regarding admission, to the telemetry unit. 05/19 11:47 Order name: Basic Metabolic Panel; Complete Time: 13:02 [facility] 05/19 11:47 Order name: CBC with Diff; Complete Time: 12:27 [facility] 05/19 11:47 Order name: Troponin HS; Complete Time: 13:02 [facility] 05/19 11:53 Order name: SARS-COV-2 RT PCR (Document "Date of Onset" if Symptomatic); Complete Time: snw 13:07 05/19 12:04 Order name: TSH; Complete Time: 14:11 [facility] 05/19 12:28 Order name: Lactate; Complete Time: 14:05 [facility] 05/19 12:28 Order name: Blood Culture Adult (2) [facility] 05/19 14:53 Order name: CBC with Automated Diff [facility] 05/19 14:53 Order name: CBC with Automated Diff [facility] 05/19 14:53 Order name: Comprehensive Metabolic Panel [facility] 05/19 14:53 Order name: Comprehensive Metabolic Panel [facility] 05/19 14:53 Order name: Lipid Profile [facility] 05/19 14:53 Order name: Lipid Profile [facility] 05/19 14:53 Order name: Magnesium [facility] 05/19 11:47 Order name: XRAY Chest (1 view); Complete Time: 13:55 [facility] 05/19 11:47 Order name: EKG; Complete Time: 11:48 [facility] 05/19 11:47 Order name: Cardiac monitoring; Complete Time: 12:11 [facility] 05/19 11:53 Order name: CT Chest For PE Angio; Complete Time: 13:42 sn 05/19 11:53 Order name: Carotid Artery Bilateral US; Complete Time: 13:14 w 05/19 14:53 Order name: CONS Physician Consult [facility] 05/19 14:53 Order name: Heart Healthy [facility] 05/19 14:53 Order name: Magnesium [facility] 05/19 14:53 Order name: NT PRO-BNP [facility] 05/19 14:53 Order name: NT PRO-BNP [facility] 05/19 14:53 Order name: Phosphorus [facility] 05/19 14:53 Order name: Phosphorus [facility] 05/19 14:53 Order name: Sputum Culture [facility] 05/19 11:47 Order name: EKG - Nurse/Tech; Complete Time: 12:02 [facility] 05/19 11:47 Order name: IV Saline Lock; Complete Time: 11:47 [facility] 05/19 11:47 Order name: Labs collected and sent; Complete Time: 11:47 [facility] 05/19 11:47 Order name: O2 Per Protocol; Complete Time: 12:02 [facility] 05/19 11:47 Order name: O2 Sat Monitoring; Complete Time: 12:02 [facility] EC:01 Rate is 120 beats/min. Rhythm is regular. QRS [place] is Normal. MD interval is normal. snw QRS interval is normal. QT interval is normal. Q waves are Present in leads V2, V3. Clinical impression: Sinus tachycardia. Administered Medications: 14:35 Drug: Rocephin (cefTRIAXone) 1 grams Route: IV; Rate: calculated rate; Site: left kb3 antecubital; 15:00 Follow up: Response: No adverse reaction; IV Status: Completed infusion; IV Intake: [id number] 15:00 Drug: Zithromax (azithromycin) 10 mg/kg Route: IVPB; Rate: calculated rate; Site: left kb3 antecubital; 15:58 Follow up: Response: No adverse reaction; IV Status: Completed infusion; IV Intake: kb3 100ml 15:53 Drug: fentaNYL (PF) 25 mcg Route: IVP; Site: left antecubital; kb3 16:30 Follow up: Response: No adverse reaction; Pain is decreased kb3 Disposition Summary: 05/19/22 15:14 Hospitalization Ordered Hospitalization Status: Inpatient Admission snw Provider: Joana Saez snw Location: Telemetry/MedSurg (Inpatient) snw Condition: Stable snw Problem: new snw Symptoms: are unchanged snw Bed/Room Type: Standard snw Room Assignment: 428(05/19/22 19:08) ss Diagnosis - Pneumonia, unspecified organism snw - Chest pain, unspecified snw Forms: - Medication Reconciliation Form snw - SBAR form snw Addendum: 05/23/2022 19:21 STAFF ATTESTATION STATEMENT: I was immediately available onsite in the emergency s d2 department for consultation in the care of this patient. I did not see or examine this patient. Orin Newton MD. Signatures: Dispatcher [employer] EDMS Laney Larsen FNP-C IV THERAPY NURSE-Csnw Karine Deleon RN RN ss Nano Bermudez RN RN jh5 Orin Newton MD MD sd2 Chasity Dinero, RN RN kb3 Corrections: (The following items were deleted from the chart) 05/19 19:08 15:14 snw ss
--- NOTE | 2022-05-19 15:15 | ER ---
Nurse's Notes [facility] Name: Leonie Villalta Age: 66 yrs Sex: Female : 1955 Arrival Date: 05/19/2022 Time: 11:27 Bed 26 Private MD: Diagnosis: Pneumonia, unspecified organism;Chest pain, unspecified Presentation: 05/19 11:35 Chief complaint: Patient states: during the night i got real cold chills, it hurts when jh5 i breathe and the pain goes up into the neck. It hurts when i breathe. Coronavirus screen: Vaccine status: Patient reports receiving the 2nd dose of the covid vaccine. Client denies travel out of the [place] in the last 14 days. Ebola Screen: Patient negative for fever greater than or equal to 101.5 degrees Fahrenheit, and additional compatible Ebola Virus Disease symptoms Patient denies exposure to infectious person. Patient denies travel to an Ebola-affected area in the 21 days before illness onset. 11:35 Method Of Arrival: Ambulatory [facility] 11:36 Initial Sepsis Screen: Does the patient meet any 2 criteria? RR > 20 per min. HR > 90 jh5 bpm. Does the patient have a suspected source of infection? No. Patient's initial sepsis screen is negative. Risk Assessment: Do you want to hurt yourself or someone else? Patient reports no desire to harm self or others. 11:36 Acuity: ODALYS 2 5 18:34 Onset of symptoms was May 19, 2022 at 03:00. kb3 Triage Assessment: 11:46 General: Appears comfortable, slender, well groomed, well developed, Behavior is calm, jh5 cooperative, appropriate for age. Pain: Complains of pain in lungs. Respiratory: Reports shortness of breath Onset: The symptoms/episode began/occurred gradually, the patient has moderate shortness of breath. Historical: - PMHx: 11:46 Diabetes - NIDDM; High Cholesterol; ibs; jh5 - PSHx: 11:46 Appendectomy; bowel resection; Cholecystectomy; jh5 - Immunization history:: Adult Immunizations up to date. - Social history:: Smoking status: Patient denies any tobacco usage or history of. Screenin:20 Abuse screen: Denies threats or abuse. Denies injuries from another. Nutritional kb3 screening: No deficits noted. Tuberculosis screening: No symptoms or risk factors identified. Fall Risk No fall in past 12 months (0 pts). Secondary diagnosis (15 points) light-headed. IV access (20 points). Ambulatory Aid- None/Bed Rest/Nurse Assist (0 pts). Gait- Normal/Bed Rest/Wheelchair (0 pts) Mental Status- Oriented to own ability (0 pts). Total Redman Fall Scale indicates Low Risk Score (25-44 pts). Fall prevention measures have been instituted. Side Rails Up X 2 Frequent Obs/Assesments occuring Family Present and informed to notify staff if they need to leave bedside As available Patient and Family Educated on Fall Prevention Program and strategies. Assessment: 12:15 General: Appears in no apparent distress. comfortable, Behavior is calm, cooperative, kb3 Received care of pt from radiology. Pt is AAO x4 Reports 6/10 headache. [place] [id number] with chills and fever. States she felt light-headed. Pt states no sick contacts and felt well when she went to sleep.. 12:15 Cardiovascular: Reports lightheadedness, shortness of breath, Denies chest pain, Rhythm kb3 is sinus tachycardia. Respiratory: Airway is patent Respiratory effort is even, unlabored, Breath sounds are clear bilaterally. 17:00 General: See [facility] for charting. kb3 Vital Signs: 11:36 BP 129 / 66; Pulse 127; Resp 18; Temp 97.9; Pulse Ox 96% ; Weight 68.04 kg; Height 5 [facility] ft. 5 in. (165.10 cm); Pain 6/10; 12:20 BP 117 / 71; Pulse 109; Resp 20; Temp 99.8; Pulse Ox 100% ; Pain 6/10; kb3 14:36 BP 124 / 68; Pulse 106; Resp 20; Pulse Ox 95% ; kb3 15:00 BP 127 / 66; Pulse 101; Resp 20; Pulse Ox 95% ; kb3 11:36 Body Mass Index 24.96 (68.04 kg, 165.10 cm) [facility] ED Course: 11:27 Patient arrived in ED. mr 11:36 Laney Larsen FNP-C [facility]. snw 11:36 Orin Newton MD is Attending Physician. [facility] 11:46 Triage completed. jh5 11:46 Arm band placed on right wrist. jh5 11:48 Inserted saline lock: 20 gauge in left antecubital area, using aseptic technique. jh5 12:02 SARS-COV-2 RT PCR (Document "Date of Onset" if Symptomatic) Sent. jh5 12:11 Chasity Dinero, RN is Primary Nurse. kb3 12:20 Patient has correct armband on for positive identification. Placed in gown. Bed in low kb3 position. Call light in reach. Side rails up X2. Client placed on continuous cardiac and pulse oximetry monitoring. NIBP monitoring applied. drilling and production superintendent on. Warm blanket given. 12:20 No provider procedures requiring assistance completed. kb3 12:39 Carotid Artery Bilateral US In Process Unspecified. EDMS 13:[address] via wheelchair. kb3 13:10 XRAY Chest (1 view) In Process Unspecified. EDMS 13:19 CT Chest For PE Angio In Process Unspecified. EDMS 14:01 Lactate Sent. kb3 14:01 TSH Sent. kb3 15:13 Joana Saez MD is Hospitalizing Provider. snw 20:01 Patient admitted, IV remains in place. kb3 Administered Medications: 14:35 Drug: Rocephin (cefTRIAXone) 1 grams Route: IV; Rate: calculated rate; Site: left 3 antecubital; 15:00 Follow up: Response: No adverse reaction; IV Status: Completed infusion; IV Intake: [id number] 15:00 Drug: Zithromax (azithromycin) 10 mg/kg Route: IVPB; Rate: calculated rate; Site: left kb3 antecubital; 15:58 Follow up: Response: No adverse reaction; IV Status: Completed infusion; IV Intake: kb3 100ml 15:53 Drug: fentaNYL (PF) 25 mcg Route: IVP; Site: left antecubital; kb3 16:30 Follow up: Response: No adverse reaction; Pain is decreased kb3 Medication: 12:20 VIS not applicable for this client. kb3 Intake: 15:00 IV: 50ml; Total: 50ml. kb3 15:58 IV: 100ml; Total: 150ml. kb3 Outcome: 15:14 Decision to Hospitalize by Provider. snw 20:01 Admitted to Med/surg accompanied by tech, via wheelchair, with chart, Report called to estephania Guerra RN 20:01 Condition: stable 20:01 Instructed on the need for admit. 20:18 Patient left the ED. bb Signatures: Dispatcher [employer] EDMS Laney Larsen, BONY-C COURT ABSTRACTOR-Bobbyw Vee RobertsardSravani, RN RN bb Nano Bermudez RN RN jh5 Chasity Dinero RN RN kb3
[2022-05-19] MEDS ORDERED: FENTANYL CITR 100 MCG/2 ML ONE (15:57)
[2022-05-19] MEDS ORDERED: Levofloxacin 750mg IV 750 MG/150 ML BAG IV SCH (16:00)
[2022-05-19] MEDS ORDERED: ENOXAPARIN 40 MG/0.4 ML SQ ONE (17:29)
[2022-05-19] MEDS ORDERED: Levofloxacin 750mg IV 750 MG/150 ML BAG IV ONE (17:29)
[2022-05-19] MEDS ORDERED: NA CHLORIDE 0.9% 1,000 ML ONE (17:29)
[2022-05-19] MEDS ORDERED: METHYLPREDNISOLONE 40 MG INJ ONE (17:29)
[2022-05-19] MEDS: NA CHLORIDE 0.9% 1,000 ML IV SCH (17:33)
[2022-05-19] MEDS: ENOXAPARIN 40 MG/0.4 ML SQ SCH (17:34)
[2022-05-19] MEDS: METHYLPREDNISOLONE 125 MG INJ IV SCH (17:34)
[2022-05-19 18:45] VITALS: BMI 24.9
[2022-05-20] MEDS: METHYLPREDNISOLONE 125 MG INJ IV SCH ×2 (00:21→06:17)
[2022-05-20 03:52] LABS: Absolute Lymphocytes (CBC) 1.4 K/uL (0.7-4.9); Hematocrit 36.4 % (36.0-45.0); Lymphocytes % 9.6 % (15.3-44.8); MCV 90.4 fL (80-100); MPV 7.3 fL (7.6-11.3); RBC Red Blood Cell Count 4.02 M/uL (3.86-4.86)
[2022-05-20 04:02] LABS: Albumin 3.3 g/dL (3.4-5.0); Bilirubin Total 0.4 mg/dL (0.2-1.0); Magnesium 2.3 mg/dL (1.8-2.4); Phosphorus 3.1 mg/dL (2.5-4.9); Potassium 4.4 mmol/L (3.5-5.1); Protein, Total 7.5 g/dL (6.4-8.2)
[2022-05-20] MEDS: NA CHLORIDE 0.9% 1,000 ML IV SCH (06:17)
--- NOTE | 2022-05-20 06:32 | EKG ---
Test Date: 2022-05-19 Test Time: 11:58:56 Armature Winder Repairer: OSIEL MEASUREMENT RESULTS: Intervals: Rate: 120 MD: 140 QRSD: 78 QT: 328 QTc: 463 [place]: P: 65 MD: 140 QRS: 29 T: 73 INTERPRETIVE STATEMENTS: Sinus tachycardia Anterior infarct, age undetermined Abnormal ECG No previous ECG available for comparison Electronically Signed On 05-20-22 06:31:18 CDT by Robby Garcia
[2022-05-20] MEDS: ENOXAPARIN 40 MG/0.4 ML SQ SCH (08:02)
--- NOTE | 2022-05-20 08:25 | P.HP ---
Certification for Inpatient Patient admitted to: Observation With expected LOS: <2 Midnights Patient will require the following post-hospital care: None Practitioner: I am a practitioner with admitting privileges, knowledge of patient current condition, hospital course, and medical plan of care. Services: Services provided to patient in accordance with Admission requirements found in Title 42 Section 412.3 of the Code of Federal Regulations Patient History Date of Service: 05/19/22 Reason for admission: Pneumonia with lung mass History of Present Illness: Patient is a 66-year-old female who came to the hospital with shortness of breath. She been having cough and congestion and has been having pain on deep inspiration to the right side. He came into the emergency room for further evaluation. In the ER and she was describing pain that went to the neck. She had a carotid Doppler which was negative. Patient had a CT scan which showed a 2.7 centimeters lung mass around the lingular region. Patient was felt to have a pneumonia. Patient will be admitted to the hospital for further evaluation. Allergies No Known Allergies Allergy (Unverified 08/03/17 03:52) Home Medications: Amlodipine/Atorvastatin [Amlodipine-Atorvast 10-40 mg] 1 tab PO BEDTIME 05/19/22 Dulaglutide [Trulicity] 0.5 ml SQ SEECOM 05/19/22 Empagliflozin [Jardiance] 1 tab PO DAILY 05/19/22 Insulin Glargine,Hum.rec.anlog [Touivoneo Solostar] 88 units SQ BEDTIME 05/19/22 Rosuvastatin Calcium 40 mg PO BEDTIME 05/19/22 - Past Medical/Surgical History Has patient received pneumonia vaccine in the past: Yes Diabetic: Yes -: NIDDM -: HTN -: High cholesterol Past Surgical History: Patient denies surgical history - Family History Father Family History: Reviewed- Non-Contributory - Social History Smoking Status: Never smoker Alcohol use: No CD- Drugs: No Caffeine use: No Place of Residence: Home Review of Systems 10-point ROS is otherwise unremarkable Physical Examination - Vital Signs Temperature: 97.3 F Blood Pressure: 104/60 Pulse: 86 Respirations: 15 Pulse Ox (%): 93 - Physical Exam General: Alert, In no apparent distress, Oriented x3 HEENT: Atraumatic, PERRLA, Mucous membr. moist/pink, EOMI, Sclerae nonicteric Neck: Supple, 2+ carotid pulse no bruit, No LAD, Without JVD or thyroid abnormality Respiratory: Diminished Cardiovascular: Regular rate/rhythm, Normal S1 S2 Gastrointestinal: Normal bowel sounds, Soft and benign, Non-distended, No tenderness Musculoskeletal: No clubbing, No swelling, No tenderness Integumentary: No rashes Neurological: Normal gait, Normal speech, Normal strength at 5/5 x4 extr, Normal tone, Sensation intact, Cranial nerves 3-12 intact, Normal affect Lymphatics: No axilla or inguinal lymphadenopathy - Studies Laboratory Data (last 24 hrs) 05/19/22 11:51: WBC 19.90 H, Hgb 13.9, Hct 41.1, Plt Count 255 05/19/22 11:51: Sodium 137, Potassium 4.2, BUN 14, Creatinine 1.11, Glucose 201 H Assessment & Plan - Problems (Diagnosis) (1) Pneumonia Current Visit: Yes Status: Acute Qualifiers: Laterality: left Lung location: lower lobe of lung (2) Mass of lingula of lung Current Visit: Yes Status: Acute (3) HTN (hypertension) Current Visit: Yes Status: Acute (4) DM2 (diabetes mellitus, type 2) Current Visit: Yes Status: Acute - Plan Plan: 1. Continue with IV antibiotics 2. Awaiting sputum and blood culture 3. Repeat chest x-ray 4. CT scan of the chest with lung mass 5. Appreciate pulmonary consultation 6. Continue with nebs as needed 7. O2 per protocol 8. Continue with gentle hydration 9. Repeat labs including CBC and renal function in a.m. 10. GI and DVT prophylaxis Discharge Plan: Home Plan to discharge in: Greater than 2 days - Advance Directives Does patient have a Living Will: No Does patient have a Durable POA for Healthcare: No - Code Status/Comfort Care Code Status Assessed: Yes Code Status: Full Code Critical Care: No Time Spent Managing PTS Care (In Minutes): 35
--- NOTE | 2022-05-20 11:18 | P.DS ---
Discharge Date: 05/20/22 Disposition: ROUTINE DISCHARGE Discharge Condition: GOOD Reason for Admission: Pneumonia with lung mass - Problems (1) Pneumonia Current Visit: Yes Status: Acute Qualifiers: Laterality: left Lung location: lower lobe of lung (2) Mass of lingula of lung Current Visit: Yes Status: Acute (3) HTN (hypertension) Current Visit: Yes Status: Acute (4) DM2 (diabetes mellitus, type 2) Current Visit: Yes Status: Acute Brief History of Present Illness: Patient is a 66-year-old female who came to the hospital with shortness of breath. She been having cough and congestion and has been having pain on deep inspiration to the right side. He came into the emergency room for further evaluation. In the ER and she was describing pain that went to the neck. She had a carotid Doppler which was negative. Patient had a CT scan which showed a 2.7 centimeters lung mass around the lingular region. Patient was felt to have a pneumonia. Patient will be admitted to the hospital for further evaluation. Hospital Course: Patient is clinically doing well. Symptoms are improving. No other complaints voiced. She will need outpatient CT scan repeated or she is thinking about going to get a PET scan. She will follow-up with pulmonary as an outpatient peer. Continue with antibiotics and prednisone at discharge. Vital Signs/Physical Exam: Temp Pulse Resp BP Pulse Ox 97.3 F 86 15 104/60 93 05/20/22 08:26 05/20/22 08:26 05/20/22 08:26 05/20/22 08:26 05/20/22 08:26 General: Alert, In no apparent distress, Oriented x3 Laboratory Data at Discharge: WBC 14.40 K/uL (4.3-10.9) H 05/20/22 03:10 Hgb 12.6 g/dL (12.0-15.0) D 05/20/22 03:10 Hct 36.4 % (36.0-45.0) 05/20/22 03:10 Plt Count 187 K/uL (152-406) D 05/20/22 03:10 Sodium 142 mmol/L (136-145) D 05/20/22 03:10 Potassium 4.4 mmol/L (3.5-5.1) 05/20/22 03:10 BUN 16 mg/dL (7-18) 05/20/22 03:10 Creatinine 0.90 mg/dL (0.55-1.3) 05/20/22 03:10 Glucose 234 mg/dL (74-106) H 05/20/22 03:10 Phosphorus 3.1 mg/dL (2.5-4.9) 05/20/22 03:10 Magnesium 2.3 mg/dL (1.8-2.4) 05/20/22 03:10 Total Bilirubin 0.4 mg/dL (0.2-1.0) 05/20/22 03:10 AST 17 U/L (15-37) 05/20/22 03:10 ALT 42 U/L (12-78) 05/20/22 03:10 Alkaline Phosphatase 62 U/L (45-117) 05/20/22 03:10 Triglycerides 118 mg/dL (<150) 05/20/22 03:10 Cholesterol 113 mg/dL (<200) 05/20/22 03:10 HDL Cholesterol 40 mg/dL (40-60) 05/20/22 03:10 Cholesterol/HDL Ratio 2.83 05/20/22 03:10 Home Medications: Amlodipine/Atorvastatin [Amlodipine-Atorvast 10-40 mg] 1 tab PO BEDTIME 05/19/22 Dulaglutide [Trulicity] 0.5 ml SQ SEECOM 05/19/22 Empagliflozin [Jardiance] 1 tab PO DAILY 05/19/22 Insulin Glargine,Hum.rec.anlog [Toujeo Solostar] 88 units SQ BEDTIME 05/19/22 Rosuvastatin Calcium 40 mg PO BEDTIME 05/19/22 levoFLOXacin [Levaquin] 500 mg PO DAILY #10 tab 05/20/22 predniSONE [Deltasone] 20 mg PO BID #11 tab 05/20/22 New Medications: levoFLOXacin [Levaquin] 500 mg PO DAILY #10 tab predniSONE [Deltasone] 20 mg PO BID #11 tab Physician Discharge Instructions: -DC IV and DC home -Follow-up with PCP in 1 to 2 weeks -Follow-up with pulmonary in 1 to 2 weeks; patient may need additional CT scan or outpatient PET scan -Please call Dr. Saez at [phone] if any questions regarding hospital stay -Please call nursing station at [phone] if any nursing or medication questions -Return to the emergency room if symptoms worsen Diet: Regular Activity: Fall precautions Followup: OOT,OOT [Primary Care Provider] - Time spent managing pt's care (in minutes): 35
--- NOTE | 2022-05-20 11:58 | P.CNS ---
Date of Consult: 05/20/22 Reason for Consult: Pneumonia Chief Complaint: Pneumonia with lung mass History of Present Illness: Patient is 66 years of age admitted with sudden onset of left-sided chest discomfort radiating to the left shoulder also complaining of some fever denies any cough no prior history of cardiopulmonary disorders was found to have a presumed left upper lobe infiltrate patient has never smoked pain has improved worse with movement is to be pleuritic in nature Allergies No Known Allergies Allergy (Unverified 08/03/17 03:52) Home Medications: Amlodipine/Atorvastatin [Amlodipine-Atorvast 10-40 mg] 1 tab PO BEDTIME 05/19/22 Dulaglutide [Trulicity] 0.5 ml SQ SEECOM 05/19/22 Empagliflozin [Jardiance] 1 tab PO DAILY 05/19/22 Insulin Glargine,Hum.rec.anlog [Toujeo Solostar] 88 units SQ BEDTIME 05/19/22 Rosuvastatin Calcium 40 mg PO BEDTIME 05/19/22 levoFLOXacin [Levaquin] 500 mg PO DAILY #10 tab 05/20/22 predniSONE [Deltasone] 20 mg PO BID #11 tab 05/20/22 - Past Medical/Surgical History Diabetic: Yes -: NIDDM -: HTN -: High cholesterol - Family History Father Family History: Reviewed- Non-Contributory - Social History Alcohol use: No CD- Drugs: No Caffeine use: No Place of Residence: Home Review of Systems 10-point ROS is otherwise unremarkable Physical Examination Temp Pulse Resp BP Pulse Ox 97.3 F 86 15 104/60 93 05/20/22 08:26 05/20/22 08:26 05/20/22 08:26 05/20/22 08:26 05/20/22 08:26 General: Alert, In no apparent distress, Oriented x3 Respiratory: Clear to auscultation bilaterally Cardiovascular: No edema, Regular rate/rhythm, Normal S1 S2 Gastrointestinal: Normal bowel sounds, Soft and benign Musculoskeletal: No clubbing, No swelling Integumentary: No rashes, No breakdown Neurological: Normal gait, Normal speech Laboratory Data (last 24 hrs) 05/19/22 11:51: WBC 19.90 H, Hgb 13.9, Hct 41.1, Plt Count 255 05/19/22 11:51: Sodium 137, Potassium 4.2, BUN 14, Creatinine 1.11, Glucose 201 H - Problems (1) Pneumonia Current Visit: Yes Status: Acute Plan: Patient is 66 years of age. Admitted with a left-sided pleuritic chest discomfort early has a left middle lobe pneumonia adjacent to the heart she is doing better count was also elevated vital signs stable oxygenation satisfactory plan to discharge follow-up with me in 2 to 4 weeks x-ray CT scans all reviewed low risk for malignancy Qualifiers: Laterality: left Lung location: lower lobe of lung
[2022-05-20 13:39] VITALS: BP 98/56; TEMP 97.8
[2022-05-20 14:26] VITALS: O2SAT 95
== END 2022-05-20 14:35 | disposition home or self-care (01) ==
LOC: ER 11:24 → INTOOBSV 14:47 → ERHOLD 14:47 → 4TH 20:00
PROVIDERS: ADMIT Hospitalist; ATTEND Hospitalist
DX: J18.9 Pneumonia, unspecified organism (principal); R91.8 Other nonspecific abnormal finding of lung field; I10 Essential (primary) hypertension; E11.9 Type 2 diabetes mellitus without complications; E78.00 Pure hypercholesterolemia, unspecified; Z79.4 Long term (current) use of insulin; Z79.84 Long term (current) use of oral hypoglycemic drugs; Z79.899 Other long term (current) drug therapy; Z90.49 Acquired absence of other specified parts of digestive tract; Z20.822 Contact with and (suspected) exposure to COVID-19
CPT/HCPCS: 96365; 96367; 93005; 87040 ×2; 85025 ×2; 80048; 36415 ×2; 83735; 84100; 80061; 82947; 83605; 84443; 84484; 80053; 83880; 71275; 71045; 93880; 94760 ×2; 96375; 99285; U0003; Q9967; J1650 ×2; J3010; J7030 ×2; J2930 ×2; J2920; G0378 ×3